=== PATIENT | female | born 1935 | race Caucasian/White ===

== ENCOUNTER → 2016-09-03 | Outpatient (CLI) | payer MEDICARE, BC ==
--- NOTE | 2016-09-04 10:37 | MM ---
Reason for exam: screening (asymptomatic). Last mammogram was performed 1 year ago. History: Patient is postmenopausal, has history of other cancer at age 81, and is nulliparous. Benign stereotactic core biopsy of the right breast, July 17, 1999. Core biopsy of the right breast. Excisional biopsy of the left breast. Excisional biopsy of the right breast. Took estrogen for 10 years beginning at age 50. Took progesterone for 10 years beginning at age 50. Taking other hormone for 50 years beginning at age 20. Physical Findings: A clinical breast exam by your physician is recommended on an annual basis and results should be correlated with mammographic findings. MG 3D Screening Mammo W/Cad Bilateral CC and MLO view(s) were taken. Prior study comparison: September 03, 2015, bilateral MG screening mammo w CAD. August 27, 2014, bilateral MG screening mammo w CAD. August 26, 2013, bilateral digital screening mammo w/CAD. There are scattered fibroglandular densities. Finding: There are typically benign round calcifications in both breasts. Previous mammotome biopsy in the right breast. There is no discrete abnormality. Benign axillary lymph nodes x 2. ASSESSMENT: Benign, BI-RAD 2 RECOMMENDATION: Routine screening mammogram of both breasts in 1 year.
== END ==
LOC: RADMAMWWP 11:20
PROVIDERS: ATTEND Family Medicine
DX: Z12.31 Encounter for screening mammogram for malignant neoplasm of breast (principal)
CPT/HCPCS: 77063; G0202

== ENCOUNTER → 2017-09-04 | Outpatient (CLI) | payer MEDICARE, BC ==
--- NOTE | 2017-09-05 11:09 | MM ---
Reason for exam: screening (asymptomatic). Last mammogram was performed 1 year ago. History: Patient is postmenopausal, has history of other cancer at age 81, and is nulliparous. Benign stereotactic core biopsy of the right breast, July 17, 1999. Core biopsy of the right breast. Excisional biopsy of the left breast. Excisional biopsy of the right breast. Took estrogen for 10 years beginning at age 50. Took progesterone for 10 years beginning at age 50. Taking other hormone for 50 years beginning at age 20. Physical Findings: A clinical breast exam by your physician is recommended on an annual basis and results should be correlated with mammographic findings. MG 3D Screening Mammo W/Cad Bilateral CC and MLO view(s) were taken. Prior study comparison: September 03, 2016, bilateral MG 3d screening mammo w/cad. September 03, 2015, bilateral MG screening mammo w CAD. August 27, 2014, bilateral MG screening mammo w CAD. There are scattered fibroglandular densities. No significant changes when compared with prior studies. ASSESSMENT: Benign, BI-RAD 2 RECOMMENDATION: Routine screening mammogram of both breasts in 1 year.
== END | disposition home or self-care (01) ==
LOC: RADMAMWWP 12:59
PROVIDERS: ATTEND Family Medicine
DX: Z12.31 Encounter for screening mammogram for malignant neoplasm of breast (principal)
CPT/HCPCS: 77063; 77067

== ENCOUNTER → 2018-09-15 | Outpatient (CLI) | payer MEDICARE, BC ==
--- NOTE | 2018-09-16 14:13 | MM ---
Reason for exam: screening (asymptomatic). Last mammogram was performed 1 year ago. History: Patient is postmenopausal, has history of other cancer at age 81, and is nulliparous. Benign stereotactic core biopsy of the right breast, July 17, 1999. Core biopsy of the right breast. Excisional biopsy of the left breast. Excisional biopsy of the right breast. Took estrogen for 10 years beginning at age 50. Took progesterone for 10 years beginning at age 50. Taking other hormone for 50 years beginning at age 20. Physical Findings: A clinical breast exam by your physician is recommended on an annual basis and results should be correlated with mammographic findings. MG 3D Screening Mammo W/Cad Bilateral CC and MLO view(s) were taken. XCCL view(s) were taken of the right breast. Prior study comparison: September 04, 2017, bilateral MG 3d screening mammo w/cad. September 03, 2016, bilateral MG 3d screening mammo w/cad. There are scattered fibroglandular densities. Previous mammotome biopsy in the right breast. There is chronic nodularity in the right breast. Punctate regional calcifications bilaterally unchanged. No significant changes when compared with prior studies. ASSESSMENT: Benign, BI-RAD 2 RECOMMENDATION: Routine screening mammogram of both breasts in 1 year.
== END | disposition home or self-care (01) ==
LOC: RADMAMWWP 13:03
PROVIDERS: ATTEND Family Medicine
DX: Z12.31 Encounter for screening mammogram for malignant neoplasm of breast (principal)
CPT/HCPCS: 77063; 77067

== ENCOUNTER → 2019-04-17 | Outpatient (CLI) | payer MEDICARE, BC ==
--- NOTE | 2019-04-17 10:04 | CT ---
EXAMINATION TYPE: CT soft tissue neck w con DATE OF EXAM: 04/17/2019 HISTORY: Rt Vocal Cord Paralysis COMPARISON: NONE CT DLP: 345.2 mGycm. Automated Exposure Control for Dose Reduction was Utilized. TECHNIQUE: CT scan of the neck is performed with IV Contrast, patient injected with 80 mL of Isovue 300, axial images are obtained, coronal and sagittal reformatted images are reviewed. FINDINGS: Airway: Mild left apical scarring. Airway is patent. The aryepiglottic folds are symmetric. Slight as ymmetric enlargement of the right piriform sinus is seen which would correlate with patient's history . No suspicious enlargement of the laryngeal ventricle is noted. Parotid/submandibular glands: No gross abnormality seen. Carotid/Vascular Structures: There is moderate to severe plaque at the left carotid bulb extending in to proximal internal carotid artery with stenosis felt under 50% thought present Osseous Structures: Slight grade 1 anterolisthesis C4 on C5 and retrolisthesis C6 on C7. Moderate dis c space narrowing C5-C6 and C6-C7 levels. Other: No suspicious greater than 1 cm adenopathy clearly seen. IMPRESSION: No suspicious mass or adenopathy to account for patient's right-sided vocal cord paralys is.
== END | disposition home or self-care (01) ==
LOC: RADCTMAIN 08:18
PROVIDERS: ATTEND Otolaryngology
DX: R49.0 Dysphonia (principal)
CPT/HCPCS: 82565; 84520; 70491; 36415; Q9967

== ENCOUNTER → 2019-12-08 | Outpatient (CLI) | payer MEDICARE, BC ==
--- NOTE | 2019-12-10 08:31 | MM ---
Reason for exam: screening (asymptomatic). Last mammogram was performed 1 year and 3 months ago. History: Patient is postmenopausal, has history of other cancer at age 81, and is nulliparous. Benign stereotactic core biopsy of the right breast, July 17, 1999. Core biopsy of the right breast. Excisional biopsy of the left breast. Excisional biopsy of the right breast. Took estrogen for 10 years beginning at age 50. Took progesterone for 10 years beginning at age 50. Taking other hormone for 50 years beginning at age 20. Physical Findings: A clinical breast exam by your physician is recommended on an annual basis and results should be correlated with mammographic findings. MG 3D Screening Mammo W/Cad Bilateral CC and MLO view(s) were taken. Prior study comparison: September 15, 2018, bilateral MG 3d screening mammo w/cad. September 04, 2017, bilateral MG 3d screening mammo w/cad. The breast tissue is heterogeneously dense. This may lower the sensitivity of mammography. Finding: There are grouped/clustered calcifications in the lower inner quadrant of the left breast. Previous mammotome biopsy in the right breast. There is a chronic nodularity bilaterally. ASSESSMENT: Incomplete: need additional imaging evaluation, BI-RAD 0 RECOMMENDATION: Special view mammogram of the left breast. [facility] will attempt to contact patient to return for supplemental views.
== END | disposition home or self-care (01) ==
LOC: RADMAMWWP 10:52
PROVIDERS: ATTEND Family Medicine
DX: Z12.31 Encounter for screening mammogram for malignant neoplasm of breast (principal)
CPT/HCPCS: 77063; 77067

== ENCOUNTER → 2019-12-21 | Outpatient (CLI) | payer MEDICARE, BC ==
--- NOTE | 2019-12-21 12:37 | MM ---
Reason for exam: additional evaluation requested from abnormal screening. Last mammogram was performed less than 1 month ago. History: Patient is postmenopausal, has history of other cancer at age 81, and is nulliparous. Benign stereotactic core biopsy of the right breast, July 17, 1999. Core biopsy of the right breast. Excisional biopsy of the left breast. Excisional biopsy of the right breast. Took estrogen for 10 years beginning at age 50. Took progesterone for 10 years beginning at age 50. Taking other hormone for 50 years beginning at age 20. Physical Findings: Nurse did not find any significant physical abnormalities on exam. MG 3D Work Up W/Cad LT Spot compression CC, spot compression LM, CC with magnification, LM with magnification, and LM view(s) were taken of the left breast. Prior study comparison: December 08, 2019, bilateral MG 3d screening mammo w/cad. September 15, 2018, bilateral MG 3d screening mammo w/cad. Finding: There are coarse heterogeneous, grouped/clustered calcifications in the inner quadrant, middle position of the left breast persists on additional views. These results were verbally communicated with the patient and result sheet given to the patient on 12/21/19. ASSESSMENT: Suspicious, BI-RAD 4 RECOMMENDATION: Stereotactic core biopsy of the left breast. Called Dr. Adames office with mammographic findings and has scheduled an appointment for the patient for 12/24/19 at 11:[address] Echols. Biopsy scheduled for 01/01/20 at 8:00. PRELIMINARY REPORT CALLED AND FAXED TO DR. ECHOLS ON 12/21/19.
== END | disposition home or self-care (01) ==
LOC: RADMAMWWP 10:53
PROVIDERS: ATTEND Family Medicine
DX: R92.8 Other abnormal and inconclusive findings on diagnostic imaging of breast (principal)
CPT/HCPCS: 77065; G0279; 77061

== ENCOUNTER → 2019-12-24 | Outpatient (CLI) | payer MEDICARE, BC ==
[2019-12-24 11:29] VITALS: BP 121/70; PULSE 72; RESP 18; TEMP 97.6
--- NOTE | 2019-12-24 12:02 | P.GSHP ---
History of Present Illness H&P Date: 12/24/19 Chief Complaint: abnormal left breast mammogram Tabatha is an 84 year old white female seen in consultation for Dr. Fredo Adames for a mammographic abnormality of some clustered calcifications in the lower inner quadrant of the left breast. This was seen on a screening mammogram performed and 6920. Following this mammogram additional views of the breast were obtained and 620 [id number] which again revealed the calcifications of concern and stereotactic core biopsy of the left breast was recommended. Nothing of concern was noted in the right breast. The patient does not feel anything of concern in her breast. She has not noted any nipple discharge or skin changes. She has had bilateral core biopsies in the past. The right breast stereotactic core biopsy was 07/17/1999. This was benign. She is uncertain as to when the left core biopsy was performed. She does not recall going to the operating room for either breast, although she has bilateral scars indicative of open breast biopsies. She is not complaining of any lumps masses nodules or skin changes in her breast at this time. She has no nipple discharge for which she is concerned. He is not complaining of any pain in her breast. She is not complaining of any trauma or infection in her breast. Caffeine: 1 cup/day smoke: none chocolate: once/month Family History: brother: ? unsure of type Hormonal History: menarche: 13 G0 menopause: hysterectomy at 49, non cancer BCP: none hormones: took estrogen and progesterone for 10 years starting at 60; does not take anything now Surgical history: 1. Hysterectomy 2. Right knee replacement 3. Left groin nerve operation Medical History: arthritis Social History: smoke: none alcohol: wine occasional drugs: none - Constitutional Constitutional: Denies chills, Denies fever - EENT Comment: wears glasses Eyes: denies blurred vision, denies pain Ears: deny: decreased hearing, tinnitus Ears, nose, mouth and throat: Denies headache, Denies sore throat - Breasts Breasts: bilateral: as per HPI - Cardiovascular Comment: leaking valve/follows with Dr. Tovar Cardiovascular: Denies chest pain, Denies shortness of breath - Respiratory Respiratory: Denies cough, Denies 7 - Gastrointestinal Gastrointestinal: Denies abdominal pain, Denies diarrhea, Denies nausea, Denies vomiting - Genitourinary (Female) Genitourinary: Denies dysuria, Denies hematuria - Menstruation Menstruation: Reports post hysterectomy - Musculoskeletal Comment: arthritis - Integumentary Integumentary: Denies pruritus, Denies rash - Neurological Comment: carpal tunnel Neurological: Reports numbness, Denies weakness - Psychiatric Psychiatric: Denies anxiety, Denies depression - Endocrine Comment: hypothyroid Endocrine: Denies fatigue, Denies weight change - Hematologic/Lymphatic Comment: none - Allergic/Immunologic Allergic/Immunologic: Reports as per HPI Past Medical History Past Medical History: Hyperlipidemia, Hypertension, Thyroid Disorder History of Any Multi-Drug Resistant Organisms: None Reported Past Surgical History: Breast Surgery, Hysterectomy, Orthopedic Surgery Past Psychological History: No Psychological Hx Reported Smoking Status: Never smoker Past Alcohol Use History: Occasional Past Drug Use History: None Reported Medications and Allergies Home Medications Medication Instructions Recorded Confirmed Type Aspirin 81 mg PO DAILY 08/15/14 12/24/19 History Calcium Carbonate/Vitamin D3 1 tab PO DAILY 08/15/14 12/24/19 History [Caltrate 600 + D Tablet] Levothyroxine Sodium [Synthroid] 75 mcg PO DIRECTED 08/15/14 12/24/19 History Rosuvastatin [Crestor] 10 mg PO DAILY 08/15/14 12/24/19 History Allergies Allergy/AdvReac Type Severity Reaction Status Date / Time ibuprofen [From Motrin] AdvReac Unknown Verified 12/23/19 12:33 Surgical - Exam Vital Signs Temp Pulse Resp BP Pulse Ox 97.6 F 72 18 121/70 93 L 12/24/19 11:24 12/24/19 11:24 12/24/19 11:24 12/24/19 11:24 12/24/19 11:24 BMI 31 - General obese - Eyes normal ocular movement - ENT no hearing loss, no congestion - Neck no masses, trachea midline - Respiratory normal expansion, normal respiratory effort, clear to percussion, clear to auscultation - Cardiovascular Rhythm: regular Heart Sounds: normal: S1, S2 - Abdomen Abdomen: soft, non tender, no guarding, no rigid, no rebound - Integumentary ell healed scars bilateral breast - Neurologic no disoriented, no combative - Musculoskeletal normal gait, normal posture - Psychiatric oriented to time, oriented to person, oriented to place, speech is normal, memory intact Breast examination: BRA 42 C ptosis: grade2/3 Palpation: Right breast: well healed scar from prior biopsy, multiple positional exam fibrocystic changes, no dominant masses or nodules of concern Right axilla: No adenopathy of concern Left breast: Well-healed scar from prior biopsy, multiple positional exam fibrocystic changes, no dominant masses or nodules of concern Left axilla: No adenopathy of concern Results Mammogram results reviewed Assessment and Plan Assessment: Impression: 1. Left breast microcalcifications of concern 2. Fibrocystic breast changes 3. History of cardiac murmur 4. Patient takes aspirin daily 5. Hypothyroid Plan: 1. Patient to stop aspirin for 1 week prior to procedure 2. Medical clearance secondary to cardiac murmur prior to stereo biopsy 3. Stereotactic core biopsy left breast Risks and benefits of procedure discussed with the patient. Alternatives which would include watchful waiting or open biopsy are not recommended. Patient understands and wishes to proceed. Cc: Dr. Fredo Adames encounter 35 minutes, > 50% of time in planning and counselling
== END | disposition home or self-care (01) ==
LOC: WWCWWP 11:13
PROVIDERS: ATTEND Surgery
DX: Z53.9 Procedure and treatment not carried out, unspecified reason (principal)

== ENCOUNTER → 2020-01-01 | Day surgery (SDC) | payer MEDICARE, BC ==
[2020-01-01 07:28] VITALS: RESP 16; TEMP 97.8
--- NOTE | 2020-01-01 08:52 | P.PCN ---
Date of Procedure: 01/01/20 Preoperative Diagnosis: Calcifications of concern left breast inner quadrant middle position Postoperative Diagnosis: Same Procedure(s) Performed: Stereotactic core biopsy left breast Anesthesia: local Surgeon: Amberly Echols Estimated Blood Loss (ml): 0 Pathology: other (Breast tissue) Condition: stable Disposition: same day Indications for Procedure: Calcifications of concern left breast Operative Findings: Radiographic of specimen reveals calcifications Description of Procedure: The patient is an 84-year-old white female who on a mammogram was noted to have coarse heterogeneous calcifications in the inner quadrant middle position of the left breast which were of concern. It was recommended she undergo a stereotactic core biopsy of this area. Risk and benefits of the procedure were discussed with the patient. Alternatives which would be watchful waiting or open biopsy were not recommended. The patient was taken to the stereotactic core biopsy unit. She was positioned on the low rad table. A skull film was obtained in the area of concern was identified. A medial to lateral approach was used. The lesion was identified and a stero pair was obtained. The lesion was then targeted. The breast was p repped using Betadine. 20 mL of 1% lidocaine 10 of which had epinephrine were used to anesthetize the area of concern. A 9-gauge vacuum-assisted core rotating biopsy needle was driven to the correct coordinates. The needle was fired. A post-fire film was obtained to assure that the needle was in the correct location. 8 core biopsy specimens were obtained from the 3 to the 9 o'clock position. 2 specimens were obtained at 12:00. Radiograph of the specimen revealed microcalcifications. A secure marked top Marker was placed. The patient tolerated the procedure in stable condition. The specimen was sent to pathology. The patient will follow with Dr. Renteria next week. Cc: Dr. Adames
[2020-01-01 09:20] VITALS: BP 148/72; PULSE 64
--- NOTE | 2020-01-06 07:34 | MM ---
EXAMINATION TYPE: MG stereo VAD BX LT DATE OF EXAM: 01/01/2020 COMPARISON: Mammogram 12/21/2019 CLINICAL HISTORY: Abnormal mammogram TECHNIQUE: Stereotactic guided core biopsy of left breast. FINDINGS: [facility] Shortness pathway was mediolateral approach. I performed the localization, then surgeon, Dr. Dexter Oneal performed the remainder of the procedure. A vacuum assisted biopsy gun was used to obtain multiple core samples. The patient tolerated the procedure well without any immediate complication. The patient was kept in the radiology department for short stay after the procedure and then discharged home in stable condition. Targeted calcifications are identified in specimen mammogram. Post biopsy mammogram shows the clip to appear in satisfactory position relative to the targeted area of concern on the preprocedure images. IMPRESSION: SUCCESSFUL, UNCOMPLICATED STEREOTACTIC GUIDED CORE BIOPSY OF AREA OF CONCERN IN THE left BREAST, FULL PATHOLOGY RESULTS TO FOLLOW. Pathology Results: Benign LEFT BREAST LESION, NEEDLE CORE BIOPSIES: Benign adipose tissue with vascular mineralizations suggestive of intramammary lipoma. Recommendation Follow up mammogram of the left breast in 6 months. RANDELL
== END ==
LOC: RADMAMWWP 07:00
PROVIDERS: ATTEND Surgery
DX: N64.89 Other specified disorders of breast (principal)
CPT/HCPCS: 88305; 19081; A4648; J2001

== ENCOUNTER → 2020-02-23 | Outpatient (CLI) | payer MEDICARE, BC ==
--- NOTE | 2020-02-23 17:56 | US ---
EXAMINATION TYPE: US venous doppler duplex LE LT DATE OF EXAM: 02/23/2020 5:42 PM COMPARISON: NONE CLINICAL HISTORY: M79.609 Pain in unspecified limb. SIDE PERFORMED: Left TECHNIQUE: The lower extremity deep venous system is examined utilizing real time linear array sonog ed with graded compression, doppler sonography and color-flow sonography. VESSELS IMAGED: External Iliac Vein (EIV) Common Femoral Vein Deep Femoral Vein Greater Saphenous Vein * Femoral Vein Popliteal Vein Small Saphenous Vein * Proximal Calf Veins (* superficial vessels) Left Leg: Negative for DVT Medial left calf, inferior to the patient's knee, there is a complex cystic area visualized measuring 6.3 x 2.1 x 4.8 cm. Preliminary results called to Dr Mccain at time of exam IMPRESSION: No evidence for DVT. 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
== END | disposition home or self-care (01) ==
LOC: RADUSMAIN 17:17
PROVIDERS: ATTEND Family Medicine
DX: M79.605 Pain in left leg (principal)

== ENCOUNTER → 2020-06-06 | Outpatient (CLI) | payer MEDICARE, BC ==
--- NOTE | 2020-06-06 08:53 | CT ---
EXAMINATION TYPE: CT angio neck DATE OF EXAM: 06/06/2020 COMPARISON: CT neck 04/17/2019. HISTORY: 85-year-old female I65.29 carotid stenosis TECHNIQUE: Contiguous axial scanning of the neck performed with IV Contrast, patient injected with 53 mL of Isovue 370. Coronal/sagittal MIP reconstructions performed. 3-D reconstructions generated on a dedicated independent workstation. CT DLP: 307 mGycm Automated exposure control for dose reduction was used. FINDINGS: Left greater the right biapical pleural parenchymal scarring in the lungs. In addition, there is a 5 mm irregular nodule anteromedial left apex that could reflect scarring but should be reassessed in [address] of the chest. It appears slightly causey as compared to 04/17/2019. Mild atherosclerotic arch calcifications. Mild atherosclerotic narrowing of the origin of the left nichole bclavian artery. The other arch vessel origins are patent. At least mild atherosclerotic narrowing at the origin of the left vertebral artery. Right vertebral a rtery slightly more dominant. The V4 segment of the left vertebral artery after the PICA takeoff appe ars to become hypoplastic. There also appears to be persistent origin of the right posterior ce rebral artery within the visualized brain. Right common carotid artery is patent. Minimal atherosclerotic change at the right bifurcation without any significant narrowing within the right ICA. The left common carotid artery is patent. More moderate to severe atherosclerotic change at the left bifurcation with plaque and calcification. The ICA origin becomes narrowed down to 2 mm, suggesting a moderate, approximately 60% stenosis. The remainder of the left ICA is patent. Moderate atherosclerotic change mid to lower cervical spine with reversal of the normal cervical lord osis. IMPRESSION: 1. MODERATE ATHEROSCLEROTIC CHANGE OF THE LEFT BIFURCATION WITH MODERATE, APPROXIMATELY 60% PROXIMAL LEFT ICA STENOSIS. 2. MINIMAL ATHEROSCLEROTIC CHANGE AT THE RIGHT BIFURCATION WITHOUT ANY SIGNIFICANT STENOSIS. 3. 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 THE V4 SEGMENT OF THE LEFT VERTEBRAL ARTERY BECOMES H YPOPLASTIC AFTER THE PICA TAKEOFF. INCIDENTAL PERSISTENT ORIGIN RIGHT ISSUING OPERATOR WITHIN THE VISUALIZED BRAIN. 4. LEFT APICAL PLEURAL-PARENCHYMAL SCARRING ALONG WITH A 5 MM IRREGULAR NODULE ANTEROMEDIAL LEFT APEX THAT COULD REFLECT ADDITIONAL SCARRING BUT SHOULD BE REASSESSED IN [address] OF THE CHEST.
== END | disposition home or self-care (01) ==
LOC: RADCTMAIN 06:26
PROVIDERS: ATTEND Thoracic Surgery (Cardiothoracic Vascular Surgery)
DX: R22.1 Localized swelling, mass and lump, neck (principal); I65.29 Occlusion and stenosis of unspecified carotid artery
CPT/HCPCS: 82565; 84520; 70498; 36415; Q9967

== ENCOUNTER → 2020-06-28 | Outpatient (CLI) | payer MEDICARE, BC ==
[2020-06-28 11:16] LABS: Basophils # (A) 0.1 k/uL (0-0.2); Basophils % (A) 1 %; Eosinophils # (A) 0.2 k/uL (0-0.7); Eosinophils % (A) 5 %; HCT 38.1 % (34.0-46.0); HGB 12.4 gm/dL (11.4-16.0); Lymphocytes # (A) 1.2 k/uL (1.0-4.8); Lymphocytes % (A) 23 %; MCHC 32.6 g/dL (31.0-37.0); MCV 98.1 fL (80.0-100.0); Mean Platelet Volume 8.3; Monocytes # (A) 0.4 k/uL (0-1.0); Monocytes % (A) 8 %; Neutrophils # (A) 3.1 k/uL (1.3-7.7); Neutrophils % (A) 61 %; Platelet Count 167 k/uL (150-450); RBC 3.89 m/uL (3.80-5.40); RDW 12.7 % (11.5-15.5)
== END | disposition home or self-care (01) ==
LOC: LABWHC1 10:12
PROVIDERS: ATTEND Otolaryngology
DX: Z09 Encounter for follow-up examination after completed treatment for conditions other than malignant neoplasm (principal); Z86.2 Personal history of diseases of the blood and blood-forming organs and certain disorders involving the immune mechanism
CPT/HCPCS: 36415; 85025

== ENCOUNTER → 2020-08-15 | Outpatient (CLI) | payer MEDICARE, BC ==
--- NOTE | 2020-08-16 14:09 | MM ---
Reason for exam: follow-up at short interval from prior study. Last mammogram was performed 8 months ago. History: Patient is postmenopausal, has history of other cancer at age 81, and is nulliparous. Benign MG stereo VAD BX LT of the left breast, January 01, 2020. Benign stereotactic core biopsy of the right breast, July 17, 1999. Core biopsy of the right breast. Excisional biopsy of the left breast. Excisional biopsy of the right breast. Took estrogen for 10 years beginning at age 50. Took progesterone for 10 years beginning at age 50. Taking other hormone for 50 years beginning at age 20. Physical Findings: Nurse did not find any significant physical abnormalities on exam. MG 3D Diag Mammo W/Cad LT CC and MLO view(s) were taken of the left breast. Prior study comparison: December 21, 2019, left breast MG 3d work up w/cad LT. December 08, 2019, bilateral MG 3d screening mammo w/cad. There are scattered fibroglandular densities. Previous mammotome biopsy in the left breast. There is chronic nodularity in the left breast. These results were verbally communicated with the patient and result sheet given to the patient on 08/15/20. ASSESSMENT: Benign, BI-RAD 2 RECOMMENDATION: Routine screening mammogram. Back on schedule for November 2020.
== END | disposition home or self-care (01) ==
LOC: RADMAMWWP 14:37
PROVIDERS: ATTEND Family Medicine
DX: R92.8 Other abnormal and inconclusive findings on diagnostic imaging of breast (principal)
CPT/HCPCS: 77065; G0279; 77061

== ENCOUNTER → 2021-01-11 | Outpatient (CLI) | payer MEDICARE, BC ==
--- NOTE | 2021-01-16 08:21 | MM ---
Reason for exam: screening (asymptomatic). Last mammogram was performed 5 months ago. History: Patient is postmenopausal, has history of other cancer at age 81, and is nulliparous. Benign MG stereo VAD BX LT of the left breast, January 01, 2020. Benign stereotactic core biopsy of the right breast, July 17, 1999. Core biopsy of the right breast. Excisional biopsy of the left breast. Excisional biopsy of the right breast. Took estrogen for 10 years beginning at age 50. Took progesterone for 10 years beginning at age 50. Taking other hormone for 50 years beginning at age 20. Physical Findings: A clinical breast exam by your physician is recommended on an annual basis and results should be correlated with mammographic findings. MG 3D Screening Mammo W/Cad Bilateral CC and MLO view(s) were taken. XCCL view(s) were taken of the right breast. Prior study comparison: August 15, 2020, left breast MG 3d diag mammo w/cad LT. December 21, 2019, left breast MG 3d work up w/cad LT. Previous mammotome biopsy in the left breast. No significant changes when compared with prior studies. ASSESSMENT: Benign, BI-RAD 2 RECOMMENDATION: Routine screening mammogram of both breasts in 1 year.
== END | disposition home or self-care (01) ==
LOC: RADMAMWWP 13:42
PROVIDERS: ATTEND Family Medicine
DX: Z12.31 Encounter for screening mammogram for malignant neoplasm of breast (principal); Z78.0 Asymptomatic menopausal state; Z85.9 Personal history of malignant neoplasm, unspecified; Z79.818 Long term (current) use of other agents affecting estrogen receptors and estrogen levels
CPT/HCPCS: 77063; 77067

== ENCOUNTER → 2021-06-12 | Outpatient (CLI) | payer MEDICARE, BC ==
--- NOTE | 2021-06-12 16:07 | CT ---
EXAMINATION TYPE: CT angio neck DATE OF EXAM: 06/12/2021 COMPARISON: 06/06/2020 HISTORY: 86-year-old female I24.69, carotid stenosis TECHNIQUE: Contiguous axial scanning of the neck performed with IV Contrast, patient injected with 10 0 mL of Isovue 370. Coronal/sagittal MIP reconstructions performed. 3-D reconstructions generated on a dedicated PET workstation. CT DLP: 232.3 mGycm Automated exposure control for dose reduction was used. FINDINGS: Similar biapical pleural-parenchymal scarring. Mild atherosclerotic arch calcifications. Conventional arch vessel branching anatomy. Again, the right vertebral artery slightly more dominant. The V4 segment left vertebral artery after the PICA takeoff becomes hypoplastic. Redemonstrated persistent origin right posterior cerebral artery. The right common and right internal carotid arteries are widely patent with only mild atherosclerotic calcifications at the right carotid bifurcation as seen previously. Redemonstrated more moderate atherosclerotic plaque and calcification at the left carotid bifurcation . On axial image 46, the lumen is narrowed down to 1.3 mm. This qualifies as a severe, just over 70% proximal left ICA stenosis by NASCET criteria. This is increased versus 60%, previously. IMPRESSION: ATHEROSCLEROTIC CHANGES AT THE LEFT CAROTID BIFURCATION NOW WITH A SEVERE, JUST OVER 70% PROXIMAL LEF T ICA STENOSIS (VERSUS 60%, PREVIOUSLY).
== END | disposition home or self-care (01) ==
LOC: RADCTMAIN 10:45
PROVIDERS: ATTEND Surgery
DX: I65.22 Occlusion and stenosis of left carotid artery (principal)
CPT/HCPCS: 82565; 84520; 70498; 36415; Q9967

== ENCOUNTER 2021-11-22 23:35 | Emergency (ER) | payer MEDICARE, BC ==
[2021-11-23] MEDS ORDERED: ACETAMINOPHEN TAB 500 MG TAB PO STA (01:10)
--- NOTE | 2021-11-23 01:33 | XR ---
EXAMINATION TYPE: XR chest 2V DATE OF EXAM: 11/23/2021 COMPARISON: 05/04/2015 HISTORY: Cough TECHNIQUE: FINDINGS: Heart and mediastinum are normal. Lungs are clear. Diaphragm is normal. There is some arthr itic change in the right shoulder joint. IMPRESSION: No active cardiopulmonary disease. No change
--- NOTE | 2021-11-23 06:03 | ED ---
General Adult HPI - General Chief complaint: Recheck/Abnormal Lab/Rx Stated complaint: wants covid swab Time Seen by Provider: 11/23/21 05:50 Source: patient Mode of arrival: ambulatory - History of Present Illness Initial comments: 's patient is an 86-year-old woman who presents with the concern that she believes she is developing coronavirus infection. The patient states that her recently developed symptoms, had the antibiotic infusion at up requiring hospitalization here. She states that over the course of the past night into this morning she has developed a little bit of nonproductive cough and some chills. She has not noted fever. She is not having dyspnea or chest pain. No abdominal pain, vomiting or diarrhea. Onset/Timin -: days(s) Severity scale (1-10): 0 Consistency: constant Improves with: none Worsens with: none Associated Symptoms: cough, fever/chills Treatments Prior to Arrival: none - Related Data Home Medications Medication Instructions Recorded Confirmed Aspirin 81 mg PO DAILY 08/15/14 01/14/20 Calcium Carbonate/Vitamin D3 1 tab PO DAILY 08/15/14 01/14/20 [Caltrate 600 + D Tablet] Levothyroxine Sodium [Synthroid] 75 mcg PO DIRECTED 08/15/14 01/14/20 Rosuvastatin [Crestor] 10 mg PO DAILY 08/15/14 01/14/20 Lisinopril [Prinivil] 10 mg PO DAILY 01/01/20 01/14/20 Multivitamin/Iron/Folic Acid 1 tab PO DAILY 01/14/20 01/14/20 [Centrum Women Tablet] Allergies Allergy/AdvReac Type Severity Reaction Status Date / Time ibuprofen [From Motrin] AdvReac Unknown Verified 11/23/21 01:06 Review of Systems ROS Statement: Those systems with pertinent positive or pertinent negative responses have been documented in the HPI. ROS Other: All systems not noted in ROS Statement are negative. Constitutional: Reports: chills. Denies: fever, weakness Respiratory: Reports: cough. Denies: dyspnea, wheezes, hemoptysis Cardiovascular: Denies: chest pain, syncope Gastrointestinal: Denies: abdominal pain, nausea, vomiting, diarrhea Genitourinary: Denies: dysuria, hematuria Musculoskeletal: Denies: back pain Skin: Denies: rash Neurological: Denies: headache, weakness, numbness Psychiatric: Denies: anxiety Past Medical History Past Medical History: Hyperlipidemia, Hypertension, Thyroid Disorder Additional Past Medical History / Comment(s): carotid stenosis History of Any Multi-Drug Resistant Organisms: None Reported Past Surgical History: Breast Surgery, Hysterectomy, Orthopedic Surgery Additional Past Surgical History / Comment(s): bilateral breast [id number], carotid stenosis Past Psychological History: No Psychological Hx Reported Smoking Status: Never smoker Past Alcohol Use History: Occasional Past Drug Use History: None Reported General Exam General appearance: alert, in no apparent distress Head exam: Present: atraumatic, normocephalic Eye exam: Present: normal appearance. Absent: scleral icterus, conjunctival injection Neck exam: Present: normal inspection Respiratory exam: Present: normal lung sounds bilaterally. Absent: respiratory distress, wheezes, rales, rhonchi, stridor Cardiovascular Exam: Present: regular rate, normal rhythm, normal heart sounds. Absent: systolic murmur, diastolic murmur, rubs, gallop GI/Abdominal exam: Present: soft. Absent: distended, tenderness, guarding, rebound, rigid, mass Extremities exam: Present: normal inspection, normal capillary refill. Absent: pedal edema, calf tenderness Back exam: Present: normal inspection. Absent: CVA tenderness (R), CVA tenderness (L) Neurological exam: Present: alert Skin exam: Present: warm, dry, intact, normal color. Absent: rash Course Vital Signs 11/23/21 00:59 Temperature 98.1 F Pulse Rate 80 Respiratory 17 Rate Blood Pressure 165/73 O2 Sat by Pulse 96 Oximetry Medical Decision Making - Lab Data Lab Results 11/23/21 11/23/21 Range/Units 01:10 01:10 Coronavirus (PCR) Detected A (Not Detectd) Influenza Type A RNA Not Detected (Not Detectd) Influenza Type B (PCR) Not Detected (Not Detectd) Disposition Clinical Impression: COVID-19 Disposition: HOME SELF-CARE Condition: Good Instructions (If sedation given, give patient instructions): Coronavirus Disease 2019 (COVID-19) Is patient prescribed a controlled substance at d/c from ED?: No Referrals: Fredo Admaes DO [Primary Care Provider] - 1-2 days
[2021-11-23] MEDS ORDERED: BEBTELOVIMAB (EUA) 175 MG/2 ML VIAL IV ONE (07:00)
[2021-11-23 08:10] VITALS: BP 152/61; PULSE 84; RESP 18; TEMP 98
== END 2021-11-23 08:09 | disposition home or self-care (01) ==
LOC: EC 23:35
DX: U07.1 COVID-19 (principal); I10 Essential (primary) hypertension; E78.5 Hyperlipidemia, unspecified; E07.9 Disorder of thyroid, unspecified; Z79.82 Long term (current) use of aspirin; Z79.890 Hormone replacement therapy; Z79.899 Other long term (current) drug therapy
CPT/HCPCS: 87502; 87635; 71046; 99283; Q0222

== ENCOUNTER → 2022-01-17 | Outpatient (CLI) | payer MEDICARE, BC ==
--- NOTE | 2022-01-18 10:08 | MM ---
Reason for Exam: Screening (asymptomatic). Last screening mammogram was performed 12 month(s) ago. Patient History: Menarche at age 13. Patient has no children. Left ovary removed at age 50. Right ovary removed at age 50. Hysterectomy at age 50. Postmenopausal. Other cancer, age 81. Estrogen for 10 years from age 50 until age 60. Progesterone for 10 years from age 50 until age 60. Core Biopsy on the Right side. Excisional Biopsy on the Right side. Excisional Biopsy on the Left side. 01/01/2020, Benign Core Biopsy on the left side. 07/17/1999, Benign Stereotactic Core Biopsy on the right side. Prior Study Comparison: 12/21/2019 Left Diagnostic Mammogram, [facility]. 08/15/2020 Left Diagnostic Mammogram, [facility]. 01/11/2021 Bilateral Screening Mammogram, [facility]. Tissue Density: There are scattered fibroglandular densities. Findings: Analyzed By CAD. There is a biopsy clip in the right breast. There is no suspicious group of microcalcifications or new suspicious mass in either breast. Overall Assessment: Benign, BI-RAD 2 Management: Screening Mammogram of both breasts in 1 year. A clinical breast exam by your physician is recommended on an annual basis and results should be correlated with mammographic findings. Electronically signed and approved by: Roger Hernandez DO
== END | disposition home or self-care (01) ==
LOC: RADMAMWWP 14:32
PROVIDERS: ATTEND Family Medicine
DX: Z12.31 Encounter for screening mammogram for malignant neoplasm of breast (principal); Z78.0 Asymptomatic menopausal state
CPT/HCPCS: 77063; 77067

== ENCOUNTER → 2023-03-01 | Outpatient (CLI) | payer MEDICARE, BC ==
--- NOTE | 2023-03-05 22:54 | MM ---
Reason for Exam: Screening (asymptomatic). Last mammogram was performed 1 year(s) and 2 month(s) ago. Patient History: Menarche at age 13. Patient has no children. Left ovary removed at age 50. Right ovary removed at age 50. Hysterectomy at age 50. Postmenopausal. Other cancer, age 81. Estrogen for 10 years from age 50 until age 60. Progesterone for 10 years from age 50 until age 60. Core Biopsy on the Right side. Excisional Biopsy on the Right side. Excisional Biopsy on the Left side. 01/01/2020, Benign Core Biopsy on the left side. 07/17/1999, Benign Stereotactic Core Biopsy on the right side. Prior Study Comparison: 08/15/2020 Left Diagnostic Mammogram, [facility]. 01/11/2021 Bilateral Screening Mammogram, [facility]. 01/17/2022 Bilateral MG 3D screening mammo w/cad, [facility]. Tissue Density: There are scattered fibroglandular densities. Findings: Analyzed By CAD. A microclip in each breast from prior biopsies. Low axillary tail lymph nodes on both sides also remain unchanged. There is no suspicious group of microcalcifications or new suspicious mass in either breast. Overall Assessment: Benign, BI-RAD 2 Management: Screening Mammogram of both breasts in 1 year. . Patient should continue monthly self-breast exams. A clinical breast exam by your physician is recommended on an annual basis. This exam should not preclude additional follow-up of suspicious palpable abnormalities. Electronically signed and approved by: Jinny Rivas M.D. Radiologist
== END | disposition home or self-care (01) ==
LOC: RADMAMWWP 13:26
PROVIDERS: ATTEND Family Medicine
DX: Z12.31 Encounter for screening mammogram for malignant neoplasm of breast (principal); Z78.0 Asymptomatic menopausal state
CPT/HCPCS: 77063; 77067

== ENCOUNTER → 2023-08-22 | Outpatient (CLI) | payer MEDICARE, BC ==
--- NOTE | 2023-08-22 11:06 | US ---
EXAMINATION TYPE: US mass soft tissue chest/back DATE OF EXAM: 08/22/2023 COMPARISON: NONE CLINICAL INDICATION: Female, 88 years old with history of R22.30 LOCALIZED SWELLING, MASS AND LUMP, U NSPECIF; focal swelling developed 2 weeks ago with some decrease in size now. TECHNIQUE: Targeted ultrasound examination superior left shoulder at the patient's palpable site. FINDINGS: Located superiorly, medial to the AC joint and extending to partially involve the superficial aspect of the trapezius musculature, there is an elongated hypoechoic versus cystic collection measuring 5.5 x 2.0 x 1.2 cm. No internal vascularity. Internal speckles are present along with some anterior reve rberation artifact. IMPRESSION: Unusual 5.5 x 2.0 x 1.2 cm elongated collection superior left shoulder, located medial to the AC join t, and partially involving the superficial aspect of the trapezius musculature. Etiology is unclear. A liquefied hematoma, unusual ganglion cyst, and myxoma are some differential considerations. Recomme nd close clinical follow-up to ensure involution. If it persists, consider contrast enhanced MRI and orthopedic referral.
== END | disposition home or self-care (01) ==
LOC: RADUSWWP 10:30
PROVIDERS: ATTEND Family Medicine
DX: M89.8X1 Other specified disorders of bone, shoulder (principal); R22.30 Localized swelling, mass and lump, unspecified upper limb

== ENCOUNTER → 2024-03-20 | Outpatient (CLI) | payer MEDICARE, BC ==
--- NOTE | 2024-03-24 08:38 | MM ---
Reason for Exam: Screening (asymptomatic). Last screening mammogram was performed 12 month(s) ago. Patient History: Menarche at age 13. Patient has no children. Left ovary removed at age 50. Right ovary removed at age 50. Hysterectomy at age 50. Postmenopausal. Other cancer, age 81. Estrogen for 10 years from age 50 until age 60. Progesterone for 10 years from age 50 until age 60. Core Biopsy on the Right side. Excisional Biopsy on the Right side. Excisional Biopsy on the Left side. 01/01/2020, Benign Core Biopsy on the left side. 07/17/1999, Benign Stereotactic Core Biopsy on the right side. Prior Study Comparison: 01/11/2021 Bilateral Screening Mammogram, [facility]. 01/17/2022 Bilateral MG 3D screening mammo w/cad, [facility]. 03/01/2023 Bilateral MG 3D screening mammo w/cad, [facility]. Tissue Density: The breasts are heterogeneously dense, which may obscure small masses. Findings: Analyzed By CAD. Loosely grouped calcifications in the upper right breast not as well-seen on the cc view. Recommend spot magnification view. Nodularity and chronic lymph nodes in the axilla are stable. Additional benign calcifications are stable. Overall Assessment: Incomplete: need additional imaging evaluation, BI-RAD 0 Management: Diagnostic Mammogram of the right breast. . Patient should continue monthly self-breast exams. A clinical breast exam by your physician is recommended on an annual basis. This exam should not preclude additional follow-up of suspicious palpable abnormalities. Note on Talita scores and lifetime risk: 1. A Talita score greater than 3% is considered moderate risk. If this is the case, consider specialist referral to assess eligibility for a risk reducing agent. 2. If overall lifetime risk for the development of breast cancer is 20% or higher, the patient may qualify for future screening with alternating mammogram and breast MRI. [facility], , 03/24/2024 8:34 AM. Electronically signed and approved by: Kareem Ramírez M.D. Radiologis
== END | disposition home or self-care (01) ==
LOC: RADMAMWWP 14:59
PROVIDERS: ATTEND Family Medicine
CPT/HCPCS: 77063; 77067

== ENCOUNTER → 2024-03-30 | Outpatient (CLI) | payer MEDICARE, BC ==
--- NOTE | 2024-03-31 08:12 | MM ---
Reason for Exam: Additional evaluation requested from abnormal screening. Last screening mammogram was performed less than 1 month ago. Patient History: Menarche at age 13. Patient has no children. Left ovary removed at age 50. Right ovary removed at age 50. Hysterectomy at age 50. Postmenopausal. Other cancer, age 81. Estrogen for 10 years from age 50 until age 60. Progesterone for 10 years from age 50 until age 60. Core Biopsy on the Right side. Excisional Biopsy on the Right side. Excisional Biopsy on the Left side. 01/01/2020, Benign Core Biopsy on the left side. 07/17/1999, Benign Stereotactic Core Biopsy on the right side. Prior Study Comparison: 09/03/2016 Bilateral Screening Mammogram, [facility]. 09/04/2017 Bilateral Screening Mammogram, [facility]. 09/15/2018 Bilateral Screening Mammogram, [facility]. 12/08/2019 Bilateral Screening Mammogram, [facility]. 12/21/2019 Left Diagnostic Mammogram, [facility]. 08/15/2020 Left Diagnostic Mammogram, [facility]. 01/11/2021 Bilateral Screening Mammogram, [facility]. 01/17/2022 Bilateral MG 3D screening mammo w/cad, [facility]. 03/01/2023 Bilateral MG 3D screening mammo w/cad, [facility]. 03/20/2024 Bilateral MG 3D screening mammo w/cad, [facility]. Tissue Density: Right: The breasts are heterogeneously dense, which may obscure small masses. Findings: Analyzed By CAD. There are scattered punctate calcifications without suspicious cluster. Overall Assessment: Benign, BI-RAD 2 Management: Screening Mammogram of both breasts in 1 year. . Results were given to the patient verbally at the time of exam. Patient should continue monthly self-breast exams. A clinical breast exam by your physician is recommended on an annual basis. This exam should not preclude additional follow-up of suspicious palpable abnormalities. Note on Talita scores and lifetime risk: 1. A Talita score greater than 3% is considered moderate risk. If this is the case, consider specialist referral to assess eligibility for a risk reducing agent. 2. If overall lifetime risk for the development of breast cancer is 20% or higher, the patient may qualify for future screening with alternating mammogram and breast MRI. [facility], Workstation: [employer] Physical, 03/31/2024 8:10 AM. Electronically signed and approved by: Akin Rojas M.D. Radiologis
== END | disposition home or self-care (01) ==
LOC: RADMAMWWP 13:18
PROVIDERS: ATTEND Family Medicine
CPT/HCPCS: 77061; 77065

== ENCOUNTER → 2024-06-04 | Outpatient (CLI) | payer MEDICARE, BC ==
--- NOTE | 2024-06-04 15:55 | XR ---
EXAMINATION TYPE: XR chest 2V DATE OF EXAM: 06/04/2024 2:41 PM COMPARISON: Chest radiographs from 11/23/2021 CLINICAL INDICATION: Female, 89 years old with history of R06.02; [facility] TECHNIQUE: XR chest 2V Frontal and lateral views of the chest. FINDINGS: Lungs/Pleura: There is flattening of the diaphragm with increased lucency of the lungs. No evidence o f pneumothorax, pleural effusion or focal consolidation. Pulmonary vascularity: Unremarkable. Heart/mediastinum: Cardiomediastinal silhouette is unremarkable. Musculoskeletal: No acute osseous pathology. IMPRESSION: 1. No acute cardiopulmonary disease process. 2. COPD changes. [facility], , 06/04/2024 3:53 PM
== END | disposition home or self-care (01) ==
LOC: RADXRMAIN 14:24
PROVIDERS: ATTEND Nurse Practitioner Family
DX: J44.9 Chronic obstructive pulmonary disease, unspecified (principal)
CPT/HCPCS: 71046

== ENCOUNTER 2024-12-14 00:45 | Emergency (ER) | payer MEDICARE, BC ==
[2024-12-14 01:43] VITALS: RESP 16
[2024-12-14] MEDS: SILVER NITRATE APPLICATOR 1 EACH STICK..EA. TOPICAL STA (02:06)
[2024-12-14] MEDS: OXYMETAZOLINE 0.05% NASL SPRAY 1 SPRAY BOTTLE NASAL STA (02:06)
--- NOTE | 2024-12-14 02:39 | ED ---
ENT HPI - General Chief complaint: ENT Stated complaint: Nose Bleed Time Seen by Provider: 12/14/24 01:49 Source: patient Mode of arrival: ambulatory Limitations: no limitations - History of Present Illness Initial comments: 89-year-old female presenting with chief complaint of intermittent nosebleeds. Has been ongoing for few weeks. No active bleeding at this time. She states that years ago she had a nosebleed which required cauterization and she had great improvement with that. She reports that she does have a lot of chronic nasal drainage and does blow her nose frequently. No recent illness. No blood thinners. No injury or trauma. No lightheadedness or weakness. - Related Data Home Medications Medication Instructions Recorded Confirmed Aspirin 81 mg PO DAILY 08/15/14 01/14/20 Calcium Carbonate/Vitamin D3 1 tab PO DAILY 08/15/14 01/14/20 [Caltrate 600 + D Tablet] Levothyroxine Sodium [Synthroid] 75 mcg PO DIRECTED 08/15/14 01/14/20 Rosuvastatin [Crestor] 10 mg PO DAILY 08/15/14 01/14/20 lisinopriL [Prinivil] 10 mg PO DAILY 01/01/20 01/14/20 Multivitamin/Iron/Folic Acid 1 tab PO DAILY 01/14/20 01/14/20 [Centrum Women Tablet] Allergies Allergy/AdvReac Type Severity Reaction Status Date / Time ibuprofen [From Motrin] AdvReac Unknown Verified 12/14/24 01:40 Review of Systems ROS Statement: Those systems with pertinent positive or pertinent negative responses have been documented in the HPI. ROS Other: All systems not noted in ROS Statement are negative. Past Medical History Past Medical History: Hyperlipidemia, Hypertension, Thyroid Disorder Additional Past Medical History / Comment(s): carotid stenosis History of Any Multi-Drug Resistant Organisms: None Reported Past Surgical History: Breast Surgery, Hysterectomy, Orthopedic Surgery Additional Past Surgical History / Comment(s): bilateral breast [id number], carotid stenosis, knee Past Psychological History: No Psychological Hx Reported Smoking Status: Never smoker Past Alcohol Use History: Occasional Past Drug Use History: None Reported General Exam Limitations: no limitations General appearance: alert, in no apparent distress Head exam: Present: atraumatic, normocephalic, normal inspection Eye exam: Present: normal appearance, EOMI ENT exam: Present: other (The site of the bleeding is identified in the left nostril) Neck exam: Present: normal inspection. Absent: meningismus Respiratory exam: Absent: respiratory distress Cardiovascular Exam: Present: regular rate Neurological exam: Present: alert, oriented X3 Psychiatric exam: Present: normal affect, normal mood Skin exam: Present: warm, dry, normal color Course Vital Signs 12/14/24 01:40 Temperature 97.9 F Pulse Rate 72 Respiratory 16 Rate Blood Pressure 160/78 O2 Sat by Pulse 95 Oximetry Medical Decision Making - Medical Decision Making Was pt. sent in by a medical professional or institution (, BRANDY, JUDICIAL ASSISTANT, urgent care, hospital, or detention...) When possible be specific @ -No Did you speak to anyone other than the patient for history (EMS, parent, family, police, friend...)? What history was obtained from this source @ -No Did you review nursing and triage notes (agree or disagree)? Why? @ -I reviewed and agree with nursing and triage notes Were old charts reviewed (outside hosp., previous admission, EMS record, old EKG, old radiological studies, urgent care reports/EKG's, detention records)? Report findings @ -No old charts were reviewed Differential Diagnosis (chest pain, altered mental status, abdominal pain women, abdominal pain men, vaginal bleeding, weakness, fever, dyspnea, syncope, headache, dizziness, GI bleed, back pain, seizure, CVA, palpatations, mental health, musculoskeletal)? @ -Differential includes trauma induced, coagulopathy, anatomical abnormality, not an all-inclusive list EKG interpreted by me (3pts min.). @ -As above X-rays interpreted by me (1pt min.). @ -None done CT interpreted by me (1pt min.). @ -None done U/S interpreted by me (1pt. min.). @ -None done What testing was considered but not performed or refused? (CT, X-rays, U/S, labs)? Why? @ -None What meds were considered but not given or refused? Why? @ -None Did you discuss the management of the patient with other professionals (professionals i.e. BRANDY Garcia, JUDICIAL ASSISTANT, lab, RT, psych nurse, social science manager, quality assurance technician, teacher, chief procurement officer, disease case manager)? Give summary @ -No Was smoking cessation discussed for >3mins.? @ -No Was critical care preformed (if so, how long)? @ -No Were there social determinants of health that impacted care today? How? (Homelessness, low income, unemployed, alcoholism, drug addiction, transportation, low edu. Level, literacy, decrease access to med. care, long term, rehab)? @ -No Was there de-escalation of care discussed even if they declined (Discuss DNR or withdrawal of care, Hospice)? DNR status @ -No What co-morbidities impacted this encounter? (DM, HTN, Smoking, COPD, CAD, Cancer, CVA, ARF, Chemo, Hep., AIDS, mental health diagnosis, sleep apnea, morbid obesity)? @ -None Was patient admitted / discharged? Hospital course, mention meds given and route, prescriptions, significant lab abnormalities, going to OR and other pertinent info. @ -89-year-old female presented with chief complaint of intermittent nosebleeds. No active bleeding at this time. The likely site of bleeding is identified within the left nostril. The area was cauterized. Patient is also provided with Afrin and nasal clamp for home. She is educated on the use of the nasal spray nasal clamp if needed. Follow-up with ENT. Follow-up with PCP. Report back to ER with any new or worsening symptoms. Discussed return parameters and answered all questions. Patient conveyed verbal understanding and agreed to the plan. I discussed this case in detail with my attending Dr. Choe Undiagnosed new problem with uncertain prognosis? @ -No Drug Therapy requiring intensive monitoring for toxicity (Heparin, Nitro, Insulin, Cardizem)? @ -No Were any procedures done? @ -No Diagnosis/symptom? @ -Epistaxis Acute, or Chronic, or Acute on Chronic? @ -Acute Uncomplicated (without systemic symptoms) or Complicated (systemic symptoms)? @ -Uncomplicated Side effects of treatment? @ -No Exacerbation, Progression, or Severe Exacerbation? @ -No Poses a threat to life or bodily function? How? (Chest pain, [place], [place], pneumonia, PE, COPD, DKA, ARF, appy, cholecystitis, CVA, Diverticulitis, Homicidal, Suicidal, threat to staff... and all critical care pts) @ -Unlikely Disposition Clinical Impression: Epistaxis Disposition: HOME SELF-CARE Condition: Good Instructions (If sedation given, give patient instructions): Nosebleed (ED) Additional Instructions: Follow-up with PCP and ENT. Report back to ER with any new or worsening symptoms. If you have a nosebleed you may apply 2 sprays of the Afrin nasal spray followed by the nasal clamp over the bridge of the nose. Keep the clamp in place for 10 to 15 minutes. Is patient prescribed a controlled substance at d/c from ED?: No Referrals: Fredo Adames DO [Primary Care Provider] - 1-2 days Delta Weston MD [STAFF PHYSICIAN] - 1-2 days Time of Disposition: 02:39
[2024-12-14 02:48] VITALS: BP 164/79; PULSE 65; TEMP 98.2
== END 2024-12-14 02:44 | disposition home or self-care (01) ==
LOC: EC 00:45
DX: R04.0 Epistaxis (principal); Z88.6 Allergy status to analgesic agent
CPT/HCPCS: 99283